=== PATIENT | female | born 1970 | race Two or more races ===

== ENCOUNTER 2020-09-14 19:47 | Emergency (ER) | payer SELFPAY ==
[~2020-09-14] VITALS: Ht 165.1 cm; Wt 77.1 kg
--- NOTE | 2020-09-14 20:09 | Emergency Room Report ---
History of Present Illness General Chief Complaint: Chest Pain Source: Patient Present Illness HPI Patient is a 49-year-old female who presents for increased chest discomfort. Reports of increased right-sided chest pain intermittent episodes for the past 4 to 5 days. Had been having increased generalized body aches as well as nonproductive cough. Reports having a sick contact at home approximately 10 days ago. Denies any vomiting or diarrhea. Pain is worse with deep breath. Allergies: Coded Allergies: No Known Allergies (Unverified , 09/14/20) COVID-19 Screening Contact w/high risk pt: No Experienced COVID-19 symptoms?: No COVID-19 Testing performed CARE REP: No Patient History Past Medical History: see triage record Last Menstrual Period: n/a Reviewed Nursing Documentation: PMH: Agreed; PSxH: Agreed Nursing Documentation-PMH Past Medical History: No Stated History Review of Systems All Other Systems: negative except mentioned in HPI Physical Exam Vital Signs Date Time Temp Pulse Resp B/P (MAP) Pulse Ox O2 Delivery O2 Flow Rate FiO2 09/14/20 19:52 98.8 85 18 150/78 (102) 95 Room Air Sp02 EP Interpretation: reviewed, normal General Appearance: normal inspection, well appearing, no apparent distress, alert, GCS 15, non-toxic Head: atraumatic ENT: normal ENT inspection, hearing grossly normal, normal voice Neck: normal inspection, full range of motion, supple, no bony tend Respiratory: normal inspection, lungs clear, normal breath sounds, no respiratory distress, no retraction, no wheezing Cardiovascular #1: regular rate, rhythm, no edema Gastrointestinal: normal inspection, normal bowel sounds, non tender, soft, no guarding, no hernia Genitourinary: no CVA tenderness Musculoskeletal: normal inspection, back normal, normal range of motion Neurologic: alert, motor strength/tone normal, 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 Differential diagnosis include was not limited to coronavirus infection, pneumonia, myocardial infarction, pneumothorax among others. Because of complexity of patient's case laboratory tests and imaging studies were ordered. Patient was noted to have s ome symptoms consistent with coronavirus infection. Patient was noted to be recently exposed to somebody who may have had coronavirus. Oxygen level appears to be adequate at this time. Patient was given medications. Patient does not meet hospital criteria for testing at this time. She is advised to have outpatient coronavirus testing. She advised to self quarantine. She is advised to return if worse. This medical record is generated with [employer] buck swamper software. There may be some buck swamper discrepancies related to use of this software Labs Test 09/14/20 20:00 09/14/20 20:15 Urine Color Yellow Urine Appearance Slightly cloudy Urine pH 7 (4.5-8.0) Urine Specific Holcomb 1.010 (1.005-1.035) Urine Protein Negative (NEGATIVE) Urine Glucose (UA) Negative (NEGATIVE) Urine Ketones 1+ (NEGATIVE) Urine Blood 3+ (NEGATIVE) Urine Nitrite Negative (NEGATIVE) Urine Bilirubin Negative (NEGATIVE) Urine Urobilinogen Normal MG/DL (0.0-1.0) Urine Leukocyte Esterase Negative (NEGATIVE) Urine RBC 10-15 /HPF (0 - 2) Urine WBC 2-4 /HPF (0 - 2) Urine Squamous Epithelial Cells Many /LPF (NONE/OCC) Urine Bacteria Moderate /HPF (NONE) Urine Yeast Moderate /HPF (NONE) Urine Opiates Screen Negative (NEGATIVE) Urine Barbiturates Screen Negative (NEGATIVE) Phencyclidine (PCP) Screen Negative (NEGATIVE) Urine Amphetamines Screen Negative (NEGATIVE) Urine Benzodiazepines Screen Negative (NEGATIVE) Urine Cocaine Screen Negative (NEGATIVE) Urine Marijuana (THC) Screen Negative (NEGATIVE) White Blood Count 6.8 K/UL (4.8-10.8) Red Blood Count 4.61 M/UL (4.20-5.40) Hemoglobin 14.8 G/DL (12.0-16.0) Hematocrit 41.6 % (37.0-47.0) Mean Corpuscular Volume 90 FL (80-99) Mean Corpuscular Hemoglobin 32.1 PG (27.0-31.0) Mean Corpuscular Hemoglobin Concent 35.6 G/DL (32.0-36.0) Red Cell Distribution Width 12.0 % (11.6-14.8) Platelet Count 234 K/UL (150-450) Mean Platelet Volume 7.7 FL (6.5-10.1) Neutrophils (%) (Auto) 46.9 % (45.0-75.0) Lymphocytes (%) (Auto) 43.1 % (20.0-45.0) Monocytes (%) (Auto) 8.0 % (1.0-10.0) Eosinophils (%) (Auto) 1.4 % (0.0-3.0) Basophils (%) (Auto) 0.6 % (0.0-2.0) Sodium Level 138 MMOL/L (136-145) Potassium Level 3.3 MMOL/L (3.5-5.1) Chloride Level 103 MMOL/L (98-107) Carbon Dioxide Level 27 MMOL/L (21-32) Anion Gap 8 mmol/L (5-15) Blood Urea Nitrogen 9 mg/dL (7-18) Creatinine 0.8 MG/DL (0.55-1.30) Estimat Glomerular Filtration Rate > 60 mL/min (>60) Glucose Level 92 MG/DL (74-106) Calcium Level 8.5 MG/DL (8.5-10.1) Total Bilirubin 0.6 MG/DL (0.2-1.0) Aspartate Amino Transf (AST/SGOT) 54 U/L (15-37) Alanine Aminotransferase (ALT/SGPT) 85 U/L (12-78) Alkaline Phosphatase 72 U/L (46-116) Troponin I 0.000 ng/mL (0.000-0.056) C-Reactive Protein, Quantitative < 0.4 mg/dL (0.00-0.90) Pro-B-Type Natriuretic Peptide 14 pg/mL (0-125) Total Protein 8.0 G/DL (6.4-8.2) Albumin 3.9 G/DL (3.4-5.0) Globulin 4.1 g/dL Albumin/Globulin Ratio 1.0 (1.0-2.7) Last Vital Signs Date Time Temp Pulse Resp B/P (MAP) Pulse Ox O2 Delivery O2 Flow Rate FiO2 09/14/20 19:52 98.8 85 18 150/78 (102) 95 Room Air Status: improved Disposition: HOME, SELF-CARE Condition: Stable Scripts Guaifenesin/Dextromethorphan* (Guaifenesin Dm Syrup*) 5 Ml Syrup 10 ML ORAL Q6H PRN for FOR COUGH, #118 ML Prov: James Whitehead MD 09/14/20 Azithromycin* (ZITHROMAX*) 250 Mg Tablet 250 MG ORAL DAILY, #6 TAB 0 Refills Take two tables once daily for 1 day, then one tablet once daily for 4 days. Prov: James Whitehead MD 09/14/20 James Whitehead MD Sep 14, 2020 20:09
[2020-09-14 20:10] VITALS: BP 160/68
--- NOTE | 2020-09-14 20:10 | NUR ---
ED Nurse Note: Patient walked into ED from home for c/o 8/10 aching chest pain that has been intermittent for the past week. She also reports cough and body aches. She is breathing normal and unlabored at this time. AAOX4. Patient connected to monitor car operator. EKG bedside. Safety measures in place. IV line established, blood drawn and sent to lab.
[2020-09-14 20:44] LABS: APPEARANCE,URINE SLIGHTLY CLOUDY; BILIRUBIN, URINE NEGATIVE (NEGATIVE); COLOR,URINE YELLOW; GLUCOSE, URINE (UA) NEGATIVE (NEGATIVE); KETONES,URINE 1+ (NEGATIVE); LEUKOCYTE ESTERASE ,URINE NEGATIVE (NEGATIVE); NITRITE,URINE NEGATIVE (NEGATIVE); PH,URINE 7 (4.5-8.0); PROTEIN,URINE NEGATIVE (NEGATIVE); UROBILINOGEN,URINE NORMAL MG/DL (0.0-1.0)
[2020-09-14 20:49] LABS: BASOPHILS % (AUTO) 0.6 % (0.0-2.0); EOSINOPHILS % (AUTO) 1.4 % (0.0-3.0); HEMATOCRIT 41.6 % (37.0-47.0); HEMOGLOBIN 14.8 G/DL (12.0-16.0); LYMPHOCYTES % (AUTO) 43.1 % (20.0-45.0); MEAN CORPUSCULAR VOLUME 90 FL (80-99); NEUTROPHILS % (AUTO) 46.9 % (45.0-75.0); PLATELET COUNT 234 K/UL (150-450); RED BLOOD COUNT 4.61 M/UL (4.20-5.40); WHITE BLOOD COUNT 6.8 K/UL (4.8-10.8)
[2020-09-14 20:54] LABS: ANION GAP 8 mmol/L (5-15); BLOOD UREA NITROGEN 9 mg/dL (7-18); CALCIUM 8.5 MG/DL (8.5-10.1); CARBON DIOXIDE 27 MMOL/L (21-32); CHLORIDE 103 MMOL/L (98-107); CREATININE 0.8 MG/DL (0.55-1.30); POTASSIUM 3.3 MMOL/L (3.5-5.1); SODIUM 138 MMOL/L (136-145)
--- NOTE | 2020-09-14 21:00 | NUR ---
ED Nurse Note: Patient is not actively having chest pain at this time. She is resting in bed, no signs of acute distress. Her breathing is normal and unlabored; 100% O2 sat on RA.
[2020-09-14 21:06] LABS: ALANINE AMINOTRANSFERASE 85 U/L (12-78); ALBUMIN 3.9 G/DL (3.4-5.0); ALKALINE PHOSPHATASE 72 U/L (46-116); ASPARTATE AMINO TRANSFERASE 54 U/L (15-37); BILIRUBIN,TOTAL 0.6 MG/DL (0.2-1.0)
[2020-09-14] MEDS ORDERED: ZITHROMAX250 MG ORAL (21:25)
[2020-09-14] MEDS ORDERED: GUAIFENESIN DM118 M1 ORAL (21:25)
[2020-09-14 21:35] VITALS: BP 129/64
--- NOTE | 2020-09-14 21:35 | NUR ---
ER DISCHARGE NOTE: Patient is cleared to be discharged per ERMD, pt is aox4, on room air, with stable vital signs. pt was given dc and prescription instructions, pt was able to verbalize understanding, pt id band and iv site removed without complications. pt is able to ambulate with steady gait. pt took all belongings.
--- NOTE | 2020-09-15 13:44 | Diagnostic Imaging Report ---
Indication: Reason For Exam: SOB Technique: Single AP view of the chest. Comparison: None. Findings: The cardiomediastinal silhouette is within normal limits when accounting for projection and technique. No airspace consolidation. There is diffuse peribronchial thickening. No pneumothorax or pleural effusion. No acute osseous abnormality. IMPRESSION: Diffuse peribronchial thickening in the absence of airspace consolidation, which is nonspecific but can be seen with infectious/inflammatory airways disease or atypical/viral pneumonia in the appropriate clinical context.
== END 2020-09-14 21:40 | disposition home or self-care (01) ==
LOC: EMR 20:05
DX: J98.8 Other specified respiratory disorders (principal); R07.89 Other chest pain; R05 Cough; M79.10 Myalgia, unspecified site
CPT/HCPCS: 36415; 71045; 80053; 80307; 81003; 83880; 84484; 85025; 86140; 87086; 93005; 96360; 99284